=== PATIENT | female | born 1985 | race Caucasian/White ===

== ENCOUNTER 2018-01-05 09:37 | Emergency (ER) | payer OTHER ==
[~2018-01-05] VITALS: Ht 157.5 cm; Wt 110.0 kg
[2018-01-05 09:48] VITALS: BP 156/90
[2018-01-05] MEDS ORDERED: ACETAMINOPHEN 325 MG TABLET PO ONE (11:00)
== END 2018-01-05 11:52 | disposition home or self-care (01) ==
LOC: EMS 09:39
DX: M54.6 Pain in thoracic spine (principal); R03.0 Elevated blood-pressure reading, without diagnosis of hypertension
CPT/HCPCS: 99283